=== PATIENT | male | born 1945 | race Caucasian/White ===

== ENCOUNTER 2019-12-09 10:42 | Day surgery (SDC) | payer MEDICARE ==
[~2019-12-09] VITALS: Ht 175.3 cm; Wt 107.1 kg
--- NOTE | ~2019-12-09 | HEMODYNAMI ---
PATIENT:YOLANDA SCHUMACHER JR MEDICAL RECORD: [id number] : 43 LOCATION:[facility] ADMISSION DATE: 12/09/19 Generatedon:12/09/201914:04 Patient name: YOLANDA SCHUMACHER Patient #: [id number] SSN: : 1945 Date of study: 12/09/2019 Page: Of Hemodynamic Procedure Report Patient Data Patient Demographics Procedure consent was obtained First Name: YOLANDA Gender: Male Last Name: ENDY Suffix: Patient #: [id number] : 1945 Age: 74 year(s) Accession #: Race: [id number] Additional ID: [id number] Contact details Address: [address] State: [place] City: [place] Zip code: [address] Past Medical History Allergies Allergen Reaction Date Comments Reported Other allergy 12/09/2019 SULFA, HYDROCHLOROTHIAZIDE. Admission Admission Data Admission Date: 12/09/2019 Admission Time: 10:42 Arrival Date: 12/09/2019 Arrival Time: 0:00 Height (in.): 69 BSA: 2.22 (m2) Height (cm.): 175.26 BMI: 34.84 (kg/m2) Weight (lbs.): 235.9 Weight (kg.): 107 Lab Results Lab Result Date: 12/09/2019 Lab Result Time: 0:00 Biochemistry Name Units Result Min Max BUN mg/dl 16 --(---*)-- 7 18 Creatinine mg/dl 1.1 --(--*-)-- 0.6 1.3 eGFR ml/min 69 *-(----)-- 90 120 NONAFRICAN CBC Name Units Result Min Max Hematocrit % 45.6 --(-*--)-- 42 54 Hemoglobin g/dl 15 --(-*--)-- 13.5 17.5 Procedure Procedure Types Cath Procedure Diagnostic Procedure LHC Coronaries only Aortic Root Angiography Sedation Charges Moderate Sedation up to 30 minutes Procedure Description Procedure Date Procedure Date: 12/09/2019 Procedure Start Time: 13:38 Procedure End Time: 14:02 Procedure Staff Name Function Manuel Hebert MD Performing Physician Gi Jones RT Garbage Depot Worker Brittany West RT Scrub Nancy Guo RT Monitor Paulina Lau RN Nurse Procedure Data Cath Procedure Fluoroscopy Diagnostic fluoroscopy Total fluoroscopy Time: 5.3 time: 5.3 min min Diagnostic fluoroscopy Total fluoroscopy dose: 880 dose: 880 mGy mGy Contrast Material Contrast Material Type Amount (ml) Isovue 300 80 Entry Location Entry Primary Successful Side Size Upsize Upsize Entry Closure Stewart ccessful Closure Location (Fr) 1 (Fr) 2 (Fr) Remarks Device Remarks Radial Right 6 Fr Mechanical artery Short Compression Estimated blood loss: 5 ml Diagnostic catheters Device Type Used For End Catheter Placement DIAGNOSTIC Nelida 110cm Procedure 5Fr catheter ([id number]) DIAGNOSTIC [place] 110cm 5 Procedure Fr catheter ([id number]) DIAGNOSTIC AR MOD 5Fr Right Coronary Catheter ([id number]) Angiography DIAGNOSTIC Pigtail 5Fr Procedure catheter ([id number]) Procedure Complications No complications Procedure Medications Medication Administration Route Dosage 0.9% NaCl I.V. 100 ml/hr Oxygen etCO2 Nasal cannula 2 l/min Lidocaine 2% added to field 20 Heparin Flush Bag added to field 2 bags (1000units/500ml NS) Radial Cocktail added to field 1 syringe (Verapamil 2mg/Nitro 400mcg/Heparin 1500units) Versed I.V. 2 mg Fentanyl I.V. 50 mcg Fentanyl I.V. 50 mcg Hemodynamics Rest BSA: 2.22 (m2) HGB: 15 (g/dl) O2 Consumption: Estimated: 247.64 (ml/min) O2 Cons umption indexed: Estimated:111.55 (ml/min/m) Heart Rate: 61 (bpm) Snapshots Pre Cath Intra NCS Post Cath Vital Signs Time Heart Resp SPO2 etCO2 NIBP (mmHg) Rhythm Pain Sedation Rate (ipm) (%) (mmHg) Status Level (bpm) 12:59:03 63 13 97 0 130/76(96) NSR 0 (11) 10(A) , No pain 13:03:23 61 13 96 34.4 129/78(103) NSR 0 (11) 10(A) , No pain 13:07:43 72 16 98 0.7 144/82(114) NSR 0 (11) 10(A) , No pain 13:11:57 70 12 97 2.9 126/87(111) NSR 0 (11) 10(A) , No pain 13:16:19 71 15 98 13.4 135/73(100) NSR 0 (11) 10(A) , No pain 13:20:38 71 18 98 26.2 138/78(101) NSR 0 (11) 10(A) , No pain 13:24:55 72 16 97 20.2 130/84(98) NSR 0 (11) 10(A) , No pain 13:29:16 70 20 97 23.9 136/83(102) NSR 0 (11) 10(A) , No pain 13:33:42 67 16 97 41.9 129/76(101) NSR 0 (11) 10(A) , No pain 13:38:02 63 13 98 29.1 125/73(99) NSR 0 (11) 10(A) , No pain 13:42:18 65 16 98 44.9 141/85(98) NSR 0 (11) 10(A) , No pain 13:46:34 66 12 97 41.9 112/72(87) NSR 0 (11) 10(A) , No pain 13:50:52 62 12 98 39.6 112/67(92) NSR 0 (11) 10(A) , No pain 13:55:08 62 12 96 41.1 118/73(92) NSR 0 (11) 10(A) , No pain 13:59:26 64 14 97 41.1 123/71(102) NSR 0 (11) 10(A) , No pain Medications Time Medication Route Dose Verified Delivered Reason Notes E ffectiveness by by 13:14:01 0.9% NaCl I.V. 100 Manuel Paulina used for ml/hr Anup Lau rework machine operator 13:14:07 Oxygen etCO2 2 l/min Manuel Paulina used for Nasal Anup Lau procedure cannula RN 13:14:13 Lidocaine 2% added 20ml Manuel Manuel for local to vial Anup Hebert MD anesthetic field 13:14:17 Heparin Flush added 2 bags Manuel Manuel used for Bag to Anup Hebert MD procedure (1000units/500ml field NS) 13:14:22 Radial Cocktail added 1 Manuel Manuel used for (Verapamil to syringe Anup Hebert MD procedure 2mg/Nitro field 400mcg/Heparin 1500units) 13:35:37 Versed I.V. 2 mg Manuel Paulina for Anup Lau sedation RN 13:35:51 Fentanyl I.V. 50 mcg Manuel Paulina for Anup Lau sedation RN 13:42:03 Fentanyl I.V. 50 mcg Manuel Paulina for Anup Lau sedation medical records library professor Log Time Note 12:40:01 Informed consent obtained and on chart 12:40:42 Procedure Status Elective Heart Cath (OP). 12:40:44 Time tracking: Regular hours (M-F 7:00 - 5:00) 12:40:46 Plan of Care:Hemodynamics will remain stable., Cardiac rhythm will remain stable., Comfort level will be maintained., Respiratory function will remain adequate., Patient/ family verbilizes understanding of procedure., Procedure tolerated without complication., Recovers from procedure without complications.. 12:40:49 Gi Jones RT(R) sent for patient. Start room use. 12:41:08 H&P Date Dictated: 11/20/2019 Within 30 days and on chart., H&P Addendum completed by physician on day of procedure. (MUST COMPLETE FOR ALL OUTPATIENTS). 12:42:05 Patient allergic to Other allergySULFA, HYDROCHLOROTHIAZIDE. 12:45:37 Lab Result : BUN 16 mg/dl 12:45:37 Lab Result : Creatinine 1.1 mg/dl 12:45:37 Lab Result : Hemoglobin 15 g/dl 12:45:37 Lab Result : eGFR NONAFRICAN 69 ml/min 12:45:37 Lab Result : Hematocrit 45.6 % 12:45:53 Patient Weight : 235.9 lbs 12:45:56 Patient Height : 69 inches 12:46:00 Arrival Date: 12/09/2019 12:00:00 AM 12:52:16 Patient received from Pre/Post Procedure Room to CCL 1 Alert and oriented. Tansferred to table in Supine position. 12:52:22 Warm blankets applied, and gracy hugger turned on for patient comfort. 12:52:22 Correct patient and procedure confirmed by team. 12:52:24 Pre-procedure instructions explained to patient. 12:52:24 Pre-op teaching completed and patient verbalized understanding. 12:52:26 Family in patients room. 12:52:33 Patient NPO since Midnight. 12:52:35 Is patient on blood thinner?No 12:52:36 Patient diabetic? No. 12:53:04 Previous problem with sedation/anesthesia? No ? 12:53:07 Snore? Yes 12:53:07 Sleep apnea? Yes 12:53:08 Deviated septum? No 12:53:10 Opens mouth fully? Yes 12:53:11 Sticks out tongue? No 12:53:23 Airway obstruction? No ? 12:53:32 Pre procedure: right dorsailis pedis pulse 1+ Palpable, but thready & weak; easily obliterated 12:54:04 IV patent on arrival in left hand with 0.9% NaCl at KVO. 12:54:30 Lab results completed and on chart. 12:56:40 Full Disclosure recording started 12:56:42 ECG and BP/O2 sat monitors applied to patient. 12:57:24 Modified Timothy's test Ulnar < 7 seconds 12:57:28 Patient pain scale 0/10 SOB. 12:57:33 Right Radial & Right Groin area was prepped with chlora-prep and draped in sterile fashion 12:57:34 Alarms reviewed by R. N. 12:57:34 Sharps counted by scrub and verified by R.N. 12:57:44 Is the patient allergic to Iodine/contrast media? No. 12:57:48 Vital chart was started 12:57:52 Rhythm: sinus rhythm 12:58:31 Baseline sample Acquired. 12:58:34 Baseline sample Acquired. 12:58:43 Baseline sample Acquired. 12:58:53 Baseline sample Acquired. 12:59:03 Use device set Radial Dx or PCI 12:59:04 ACIST Syringe (23057) opened to sterile field. 12:59:06 Bag Decanter () opened to sterile field. 12:59:06 ACIST Hand Control (41827) opened to sterile field. 12:59:06 ACIST Manifold (42844) opened to sterile field. 12:59:10 Tegaderm 4 x 4 (1626W) opened to sterile field. 12:59:14 Medline Cath Pack ([id number]) opened to sterile field. 12:59:14 MBrace Wrist Support ([id number]) opened to sterile field. 12:59:15 NEEDLE Cook 21G 4cm Radial (U21260) opened to sterile field. 12:59:16 EMERALD Guide Wire (522-486) opened to sterile field. 12:59:16 SHEATH 6FR RAIN (5923372) opened to sterile field. 13:05:58 Risk of Mortality: 0.1 13:06:02 Risk of blood transfusion: 0.2 13:06:06 Risk of KATERINE: 0.6 13:14:01 0.9% NaCl 100 ml/hr I.V. was administered by Paulina Lau RN; used for procedure; Verbal order read back and verified. 13:14:07 Oxygen 2 l/min etCO2 Nasal cannula was administered by Paulina Lau RN; used for procedure; Verbal order read back and verified. 13:14:13 Lidocaine 2% 20ml vial added to field was administered by Manuel Hebert MD; for local anesthetic; Verbal order read back and verified. 13:14:15 Zero performed for pressure channel P1 13:14:17 Heparin Flush Bag (1000units/500ml NS) 2 bags added to field was administered by Manuel Hebert MD; used for procedure; Verbal order read back and verified. 13:14:22 Radial Cocktail (Verapamil 2mg/Nitro 400mcg/Heparin 1500units) 1 syringe added to field was administered by Manuel Hebert MD; used for procedure; Verbal order read back and verified. 13:34:15 Physician arrived 13:34:16 --------ALL STOP TIME OUT------ 13:34:17 Final Timeout: patient, procedure, and site verified with staff and physician. All members of the team are in agreement. 13:34:21 Right Radial & Right Groin site verified by team. 13:34:33 Fire Safety Assessment: A--An alcohol-based skin anteseptic being used preoperatively., C--Open oxygen or nitrous oxide is being used., D--An ESU, laser, or fiber-optic light is being used. 13:34:39 Physical assessment completed. ASA score P 2 - A patient with mild systemic disease as per Manuel Hebert MD. 13:34:46 2) 60-89 Mildly reduced kidney function, and other findings (as for stage 1) point to kidney disease. 13:34:51 Maximum allowable contrast dose (3.7 X eGFR X 0.75)191 ml. 13:34:57 Sedation plan: IV Moderate Sedation Medication:Versed, Fentanyl 13:35:37 Versed 2 mg I.V. was administered by Paulina Lau RN; for sedation; Verbal order read back and verified. 13:35:51 Fentanyl 50 mcg I.V. was administered by Paulina Lau RN; for sedation; Verbal order read back and verified. 13:38:13 Procedure started. 13:38:57 Local anesthetic to right radial artery with Lidocaine 2% by Manuel Hebert MD.INITIAL ACCESS ONLY 13:42:03 Fentanyl 50 mcg I.V. was administered by Paulina Lau RN; for sedation; Verbal order read back and verified. 13:43:26 A 6 Fr Short sheath was inserted into the Right Radial artery 13:43:48 A DIAGNOSTIC Nelida 110cm 5Fr catheter (586438) was advanced over the wire and used for Procedure. 13:49:29 UNABLE TO PURCHASE WITH THE NELIDA CATHETER, SO REMOVED. 13:49:35 A DIAGNOSTIC [place] 110cm 5 Fr catheter (247892) was advanced over the wire and used for Procedure. 13:50:23 LCA angiography performed. 13:50:27 Injector settings: Ml/sec: 3, Volume: 6, 13:52:40 Catheter removed. 13:53:41 A DIAGNOSTIC AR MOD 5Fr Catheter (215447C) was advanced over the wire and used for Right Coronary Angiography. 13:54:28 RCA angiography performed. 13:54:32 Injector settings: Ml/sec: 3, Volume: 6, 13:54:39 Catheter removed. 13:55:16 A DIAGNOSTIC Pigtail 5Fr catheter ([id number]) was advanced over the wire and used for Procedure. 13:56:10 Aortic Root visualized 13:56:19 Injector settings: Ml/sec: 15, Volume: 30, 13:57:19 Catheter removed. 13:58:01 Procedure ended.(Physican Out) 13:58:05 ZEPHYR REGULAR TR BAND (906577) opened to sterile field. 13:58:17 Sheath removed intact; hemostasis achieved with Mechanical Compression to the Right Radial artery. 13:58:26 Contrast amount:Isovue 300 80ml. 13:58:49 Fluoroscopy time 05.30 minutes. 13:58:57 Fluoroscopy dose: 880 mGy 13:58:57 Flurop Dose total: 880 13:59:11 Dose Area Product 98956 mGy/cm. 13:59:16 Maximum allowable dose exceeded? No. 13:59:18 Sharps counted by scrub and verified by R.N. 13:59:23 [place] band inflated with 10cc of air. 13:59:27 Insertion/operative site no bleeding no hematoma. 13:59:35 Post right radial artery:stable 14:00:06 Post-procedure physical assessment completed. ASA score P 2 - A patient with mild systemic disease as per Manuel Hebert MD. 14:00:11 Post procedure rhythm: unchanged. 14:00:15 Estimated blood loss: 5 ml 14:00:17 Post procedure instruction explained to patient.Patient verbalizes understanding. 14:00:18 Patient needs reinforcement of post procedure teaching. 14:00:40 Procedure type changed to Cath procedure, Diagnostic procedure, C, Coronaries only, Aortic Root Angiography, Sedation Charges, Moderate Sedation up to 30 minutes 14:00:43 Procedure and supply charges have been captured, reviewed, submitted and are correct. 14:01:32 Procedure Complication : No complications 14:01:36 Vital chart was stopped 14:01:55 [facility] Findings: MVD- MD will discuss options w/ pt 14:02:00 Operative report dictated upon procedure completion. 14:02:01 See physician's report for complete and final results. 14:02:04 Report given to Pre/Post Procedure Room. 14:02:08 Patient transfered to Pre/Post Procedure Room with Stretcher. 14:02:13 Procedure ended. 14:02:13 Full Disclosure recording stopped 14:02:16 End room use (Document Last) Device Usage Item Name Manufacture Quantity Catalog Hospital Part Current Minima l Lot# / Number Charge Number Stock Stock Serial# Code ACIST Acist 1 45967 201954 062585 [id number] 20 Syringe Medical (96027) Systems Inc Bag Microtek 1 203375 51347 267322 5 Decanter Medical Inc. () ACIST Hand Acist 1 79099 540038 672749 194359 5 Control Medical (34913) Systems Inc ACIST Acist 1 63384 147987 540274 905467 5 Manifold Medical (37151) Systems Inc Tegaderm 4 3M 1 1626W 458964 876370 410198 5 x 4 (1626W) Medline Medline 1 [id number] 139880 75295 587433 5 Cath Pack ([id number]) MBrace Advanced 1 140-0250-00 629031 09411 623520 5 Wrist Vascular Support Dynamics ([id number]) NEEDLE Cook Cook Medical 1 M32643 903431 394577 221457 5 21G 4cm Radial (Y37427) EMERALD Cardinal 1 502-455 440336 734757 436513 5 Guide Wire Health (502455) SHEATH 6FR Cardinal 1 2125649 036692 6040131 797591 5 [facility] Health (4186370) DIAGNOSTIC Terumo 1 40-5023 650640 627500 407014 5 Nelida 110cm 5Fr catheter (320715) DIAGNOSTIC Terumo 1 40-5013 375010 143914 856315 5 [place] 110cm 5 Fr catheter (982560) DIAGNOSTIC Cardinal 1 [id number] 903504 384590 988858 15 AR MOD 5Fr Health Catheter (493633Q) DIAGNOSTIC Cardinal 1 [id number] 109086 763979 027045 5 Pigtail 5Fr Health catheter (782515H) ZEPHYR Cardinal 1 970754 243881 7545505 420758 5 REGULAR TR Health BAND (280125) Signature Audit [place] Stage Time Signature Unsigned Intra-Procedure 12/09/2019 Nancy 2:02:38 PM Brant RT(R) (CV) Intra-Procedure 12/09/2019 Paulina Lau 2:03:21 PM RN Intra-Procedure 12/09/2019 Manuel Hebert MD 2:04:06 PM [facility] [address] [place] [address]
[2019-12-09] MEDS ORDERED: OMEPRAZOLE20 M1 PO (11:14)
[2019-12-09] MEDS ORDERED: NORVASC10 MG PO (11:14)
[2019-12-09] MEDS ORDERED: LOPRESSOR25 MG PO (11:14)
[2019-12-09] MEDS ORDERED: SINGULAIR10 MG PO (11:15)
[2019-12-09] MEDS ORDERED: BAYER CHEWABLE81 MG PO (11:15)
[2019-12-09] MEDS ORDERED: FLOMAX0.4 MG PO (11:15)
[2019-12-09] MEDS ORDERED: ZYRTEC10 MG PO (11:16)
[2019-12-09] MEDS ORDERED: LOVASTATIN40 MG PO (11:16)
[2019-12-09] MEDS ORDERED: MOBIC7.5 MG PO (11:17)
[2019-12-09] MEDS ORDERED: MULTI-DAY VITAM1 TAB PO (11:17)
[2019-12-09] MEDS ORDERED: FIBERCON625 MG PO (11:17)
[2019-12-09] MEDS ORDERED: SAW PALMETTO450 MG PO (11:18)
[2019-12-09 11:33] VITALS: BP 103/74; Ht 175.3 cm; Wt 107.1 kg
[2019-12-09 11:35] LABS: BASOPHILS 0.6 % (0-2); EOSINOPHILS 1.4 % (0-7); HEMATOCRIT 45.6 % (42.0-54.0); IMMATURE GRANULOCYTES 0.6 % (0-5); LYMPHOCYTES 34.2 % (15-50); MCH 30.4 pg (26.0-34.0); MCHC 32.9 g/dL (31.0-37.0); MCV 92.3 fL (80.0-100.0); MEAN PLATELET VOLUME 10.4 fL (7.4-10.4); MONOCYTES 8.9 % (2-11); NEUTROPHILS 54.3 % (40-80); PLATELET COUNT 242 10x3/uL (130-400); RBC 4.94 10x6/uL (4.20-6.10); RDW 12.9 % (11.5-14.5); WBC 10.4 10x3/uL (4.8-10.8)
[2019-12-09 11:48] LABS: ANION GAP 11.6 mmol/L (8-16); CALCIUM 8.8 mg/dL (8.5-10.1); CARBON DIOXIDE 27.7 mmol/L (21.0-32.0); CHOL - HDL RATIO 3.7 ratio (2.3-4.9); CREATININE - SERUM 1.1 mg/dL (0.6-1.3); LDL-HDL RATIO 1.9 ratio (1.5-3.5); POTASSIUM - SERUM 4.3 mmol/L (3.5-5.1)
--- NOTE | 2019-12-09 14:10 | NUR ---
PT ARRIVED BY STRETCHER. PLACED ON MONITORS. ASSESSMENT COMPLETED. VSS AT THIS TIME. CALL LIGHT WITHIN REACH.
--- NOTE | 2019-12-09 14:25 | NUR ---
PT RESTING COMFORTABLY. RIGHT WRIST Z BAND IN PLACE. NO BLEEDING/HEMATOMA NOTED. CALL LIGHT WITHIN REACH. VSS AT THIS TIME.
--- NOTE | 2019-12-09 14:55 | NUR ---
RIGHT WRIST Z BAND IN PLACE. NO BLEEDING/HEMATOMA NOTED. VSS AT THIS TIME. CALL LIGHT WITHIN REACH. PT RESTING COMFORTABLY.
--- NOTE | 2019-12-09 15:15 | NUR ---
2cc OF AIR REMOVED FROM Z BAND. NO BLEEDING/HEMATOMA NOTED. CALL LIGHT WITHIN REACH. PT SET UP WITH SANDWICH TRAY AND DRINK. DENIES NAUSEA.
--- NOTE | 2019-12-09 15:30 | NUR ---
3cc OF AIR REMOVED FROM Z BAND. NO BLEEDING/HEMATOMA NOTED. CALL LIGHT WITHIN REACH. VSS.
--- NOTE | 2019-12-09 15:45 | NUR ---
5cc OF AIR REMOVED FROM Z BAND. NO BLEEDING/HEMATOMA NOTED. CALL LIGHT WITHIN REACH. VSS AT THIS TIME. NO NEEDS.
--- NOTE | 2019-12-09 16:15 | NUR ---
Z BAND REMOVED AND DRESSING APPLIED. TOLERATED WELL. NO BLEEDING/HEMATOMA NOTED. PIV D/C'D WITH CATH TIP INTACT. DISCUSSED DISCHARGE INSTRUCTIONS WITH PT. THEY VOICED UNDERSTANDING. PT INSTRUCTED TO GET DRESSED AT THIS TIME. CALL LIGHT WITHIN REACH. NO ASSISTANCE NEEDED.
--- NOTE | 2019-12-09 16:30 | NUR ---
PT AMBULATED TO RESTROOM AND VOIDED WITHOUT DIFFICULTY. STEADY GAIT NOTED. RIGHT WRIST DRESSING C/D/I. NO S/S OF HEMATOMA NOTED. PT TAKEN DOWN TO VEHICLE BY WHEELCHAIR. NO S/S OF DISTRESS NOTED. ALL BELONGINGS AND PAPERWORK IN HAND.
== END 2019-12-09 16:30 | disposition home or self-care (01) ==
LOC: D.CATH 10:42
PROVIDERS: ATTEND Internal Medicine Cardiovascular Disease
DX: I35.0 Nonrheumatic aortic (valve) stenosis (principal); I25.10 Atherosclerotic heart disease of native coronary artery without angina pectoris